=== PATIENT | female | born 1955 | race African-American/Black ===

== ENCOUNTER → 2017-09-13 | Outpatient (CLI) | payer MEDICAID | END | disposition home or self-care (01) | LOC: Rad HDHVI 14:04 | PROVIDERS: ATTEND Internal Medicine | DX: I10 Essential (primary) hypertension (principal); R06.02 Shortness of breath; R07.89 Other chest pain; I34.0 Nonrheumatic mitral (valve) insufficiency | CPT/HCPCS: 93306 ==

== ENCOUNTER → 2017-09-28 | Outpatient (CLI) | payer MEDICAID ==
[~2017-09-28] VITALS: Ht 170.2 cm; Wt 63.0 kg
[~2017-09-28] MED LIST: ADENOSINE 53 MG in GIVE UN-DILUTED 0 ML IV ONE; ADENOSINE 6 MG/2 ML INJ IV ONE; ADENOSINE 90 MG/30 ML INJ IV ONE
== END | disposition home or self-care (01) ==
LOC: Rad HDHVI 08:32
PROVIDERS: ATTEND Internal Medicine
DX: I10 Essential (primary) hypertension (principal); R07.89 Other chest pain; R06.02 Shortness of breath; G62.9 Polyneuropathy, unspecified; R53.1 Weakness; Z86.79 Personal history of other diseases of the circulatory system
CPT/HCPCS: 78452; 93005; 96374; 96375; A9500; J0153

== ENCOUNTER 2025-03-26 07:42 | Emergency (ER) | payer OTHER, MEDICAID ==
[~2025-03-26] VITALS: Ht 167.6 cm; Wt 57.5 kg
[2025-03-26 08:05] VITALS: BP 195/109; PULSE 66; RESP 17; TEMP 97.9; O2SAT 99
--- NOTE | 2025-03-26 08:19 | ED.PDOC ---
History of Present Illness HPI Comments A 69 YEAR OLD FEMALE PRESENTS TO THE ED WITH COMPLAINT OF HIGH BLOOD PRESSURE. PATIENT STATES SHE HAS A HISTORY OF HYPERTENSION AND TAKES CLONIDINE 0.2 MG B.I.D., BUT RAN OUT OF THIS MEDICATION YESTERDAY. PATIENT IS REQUESTING CLONIDINE HERE IN THE ED AND A PRESCRIPTION FOR THIS MEDICATION. PATIENT DENIES VISION CHANGES, SLURRED SPEECH, ONE-SIDED WEAKNESS, FACIAL DROOP, FEVER, CHILLS, SHORTNESS OF BREATH, CHEST PAIN, ABDOMINAL PAIN, NAUSEA, VOMITING, HEADACHE, OR OTHER COMPLAINTS. NO OTHER SYMPTOMS OR MODIFYING FACTORS AT THIS TIME. PATIENT IS ALERT, ORIENTED X 4, AND HAS STEADY GAIT. Chief Complaint: High Blood Pressure Time Seen by MD: 07:59 Reviewed Notes: Nurses Notes, Medications, Allergies Allergies: Coded Allergies: No Known Drug Allergy (Verified Allergy, Unknown, 09/28/17) Home Meds Active Scripts Clonidine Hydrochloride (Clonidine Hcl) 0.2 Mg Tab, 1 TAB PO BID, #60 TAB Prov:CAMILO ACNALES 03/26/25 Information Source: Patient Mode of Arrival: Ambulatory Severity: Moderate Timing: Days Duration: Since onset, Days Prehospital treatment: None Medication Refill: Ran out of Medication, For: Hypertension, For: Other (HYPERTENSION) Past Medical History PAST MEDICAL HISTORY: HTN Surgical History: Denies all surgeries 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: 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 Family History Family History: Reviewed,noncontributory to illness Social History Smoker: Non-Smoker Alcohol: Denies ETOH Use Drugs: Denies Drug Use Lives In: Home Constitutional: denies: chills, diaphoresis, fatigue, fever, malaise, sweats, weakness, others EENTM: denies: blurred vision, double vision, ear bleeding, ear discharge, ear drainage, ear pain, ear ringing, eye pain, eye redness, hearing loss, mouth pain, mouth swelling, nasal discharge, nose bleeding, nose congestion, nose pain, photophobia, tearing, throat pain, throat swelling, voice changes, others Respiratory: denies: cough, hemoptysis, orthopnea, SOB at rest, shortness of breath, SOB with excertion, stridor, wheezing, others Cardiovascular: reports: others (HYPERTENSION); denies: chest pain, dizzy spells, diaphoresis, Dyspnea on exertion, edema, irregular heart beat, left arm pain, lightheadedness, palpitations, PND, syncope Gastrointestinal: denies: abdomen distended, abdominal pain, blood streaked bowels, constipated, diarrhea, dysphagia, difficulty swallowing, hematemesis, melena, nausea, poor appetite, poor fluid intake, rectal bleeding, rectal pain, vomiting, others Genitourinary: denies: abnormal vagina bleeding, burning, dyspareunia, dysuria, flank pain, frequency, hematuria, incontinence, pain, , vagina discharge, urgency, others Neurological: denies: dizziness, fainting, headache, left sided numbness, left sided weakness, numbness, paresthesia, pre-existing deficit, right sided numbness, right sided weakness, seizure, speech problems, tingling, tremors, weakness, others Musculoskeletal: denies: back pain, gout, joint pain, joint swelling, muscle pain, muscle stiffness, neck pain, others Integumetry: denies: bruises, change in color, change in hair/nails, dryness, laceration, lesions, lumps, rash, wounds, others Allergic/Immunocompromised: denies: Difficulty Healing, Frequent Infections, Hives, Itching, others Hematologic/Lymphatic: denies: anemia, blood clots, easy bleeding, easy bru ising, swollen glands, others Endocrine: denies: excessive hunger, excessive sweating, excessive thirst, e xcessive urination, flushing, intolerance to cold, intolerance to heat, unexplained weight gain, unexplained weight loss, others Psychiatric: denies: anxiety, bipolar disorder, depression, hopeless, panic disorder, schizophrenia, sleepless, suicidal, others All Other Systems: Reviewed and Negative Physical Exam General Appearance: No Apparent Distress, Normal HEENT: Normal ENT Inspection, PERRL/EOMI, Pharynx Normal, TMs Normal Neck: Full Range of Motion, Non-Tender, Normal, Normal Inspection Respiratory: Chest Non-Tender, Lungs Clear, No Accessory Muscle Use, No Respiratory Distress, Normal Breath Sounds Cardiovascular: No Edema, No JVD, No Murmur, No Gallop, Normal Peripheral Pulses, Regular Rate/Rhythm Breast Exam: Deferred Gastrointestinal: No Organomegaly, Non Tender, No Pulsatile Mass, Normal Bowel Sounds, Soft Genitalia: Deferred Pelvic: Deferred Rectal: Deferred Extremities: No calf tenderness, Normal capillary refill, Normal inspection, Normal range of motion, Non-tender, No pedal edema Musculoskeletal : Apperance: Normal Neurologic: Alert, 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 Was a procedure done?: No Differential Dx Considerations may include: HYPERTENSION, HYPERTENSIVE URGENCY, UNCONTROLLED HYPERTENSION, MEDICATION REFILL, WELL CHECK X-Ray, Labs, Meds, VS Vital Signs Date Time Temp Pulse Resp B/P (MAP) Pulse Ox O2 Delivery O2 Flow Rate FiO2 03/26/25 09:28 173/95 03/26/25 08:21 195/109 03/26/25 08:05 97.9 66 17 195/109 (137) 99 97.9 03/26/25 07:50 60 03/26/25 07:43 97.9 64 18 212/108 100 97.9 Current Medications Medications (Trade) Dose Ordered Sig/Craig Route Start Time Stop Time Status Last Admin Clonidine HCl (Catapres Tablet) 0.2 mg ONCE ONCE PO 03/26/25 08:15 03/26/25 08:16 DC 03/26/25 08:21 X-Ray, Labs, Meds, VS Comment EXTERNAL MEDICAL RECORDS REVIEWED: [NONE] INDEPENDENT HISTORIANS: [NONE] SOCIAL DETERMINANTS OF HEALTH: [NONE] LABS ORDERED: NONE REVIEWED AND INTERPRETED RESULTS: NONE PATIENT DECLINED BLOOD TEST HERE IN ED SHE STATES SHE DOES NOT WANT TO WAIT F OR BLOOD TESTS AND WOULD RATHER JUST RECEIVE TREATMENT HERE IN THE ED. IMAGING ORDERED: NONE TREATMENTS ORDERED: CLONIDINE 0.2 MG PO PROCEDURES PERFORMED: NONE CRITICAL CARE TIME: NONE I HAVE DISCUSSED THE PATIENT WITH THE ATTENDING PHYSICIAN DR. FREEMAN AND HE AGREES WITH THE PATIENT'S PLAN OF CARE AND DISPOSITION. BASED ON HISTORY OF PRESENT ILLNESS, AND PHYSICAL EXAM, PATIENT WILL BE DISCHARGED HOME. DISCUSSED PLAN FOR DISCHARGE HOME WITH RX [CLONIDINE 0.2 MG]. MEDICATION WARNINGS GIVEN. SHARED DECISION MAKING: PATIENT INSTRUCTED TO FOLLOW UP WITH PRIMARY CARE PROVIDER IN 1-2 DAYS FOR RE-EVALUATION OF SYMPTOMS. PATIENT VERBALIZES UNDERSTANDING TO RETURN TO ED FOR NEW OR WORSENING SYMPTOMS OR IF FOLLOW UP WITH PCP CANNOT BE OBTAINED. PATIENT FEELS COMFORTABLE GOING HOME AT THIS TIME. ALL QUESTIONS ADDRESSED AT TIME OF DISCHARGE. Time of 1ST Reevaluation: 09:36 Reevaluation 1ST: Improved Patient Education/Counseling: Diagnosis, Treatment, Need For Follow Up Family Education/Counseling: Diagnosis, Treatment, Need For Follow Up Medical Screening: No EMC Exist At This Time SEPSIS Sepsis Screen Date sepsis recognized/suspect: Mar 26, 2025 Time Sepsis recognized/suspect: 0743 Recent Procedure: No On Antibiotic Therapy: No Respiratory Rate >20: No Heart Rate >90: No Temp<36 C (96.8 F) or >38.3 C: No SBP <90 or MAP <65 mmHG: No New Acute Mental Status Change: No Is the patient on CPAP, BIPAP,: No Physician Orders Electrocardigram (03/26/25 07:49) Vital Signs Date Time Temp Pulse Resp B/P (MAP) Pulse Ox O2 Delivery O2 Flow Rate FiO2 03/26/25 09:28 173/95 03/26/25 08:21 195/109 03/26/25 08:05 97.9 66 17 195/109 (137) 99 97.9 03/26/25 07:50 60 03/26/25 07:43 97.9 64 18 212/108 100 97.9 Medications Medications Dose Ordered Sig/Craig Route Start Time Stop Time Status Last Admin Dose Admin Clonidine HCl 0.2 mg ONCE ONCE PO 03/26/25 08:15 03/26/25 08:16 DC 03/26/25 08:21 Departure 1 Departure Time of Disposition: 09:36 Impression: Primary Impression: Hypertension Qualified Codes: I10 - Essential (primary) hypertension Additional Impression: Encounter for medication refill Disposition: HOME / SELF CARE / HOMELESS Condition: Stable Additional Instructions: FOLLOW-UP WITH PCP IN 1 TO 2 DAYS. TAKE MEDICATIONS PRESCRIBED. RETURN TO ED FOR ANY NEW OR WORSENING SYMPTOMS. e-Prescriptions Clonidine Hydrochloride (Clonidine Hcl) 0.2 Mg Tab 1 TAB PO BID, #60 TAB Prov: CAMILO CANALES 03/26/25 Discharged With: Self, Relative Critical Care Note Critical Care Time?: No Stability Stability form required: No I personally scribed for CAMILO CANALES ([email or web address]) on 03/26/25 at 08:19. Electronically submitted by Geremias Vernon ([email or web address]). I personally scribed for CAMILO CANALES ([email or web address]) on 03/26/25 at 08:30. Electronically submitted by Geremias Vernon ([email or web address]). CAMILO CANALES Mar 26, 2025 08:19
[2025-03-26] MEDS ORDERED: CLON0.2T PO (08:31)
--- NOTE | 2025-03-26 11:22 | ECG ---
[facility] Test Date: 2025-03-26 Test Time: 07:50:57 Pat Name: KARIME ELMORE Department: ED Room: Gender: F Ed Educational Aide: CARLY : 1955 Requested By: EMERGENCY EMERGENCY Order Number: [id number] Reading MD: Collin Ramon Measurements Intervals [place] Rate: 60 P: 33 [place]: 168 QRS: -66 QRSD: 83 T: 70 QT: 493 QTc: 493 Interpretive Statements Sinus rhythm Probable left atrial enlargement Left anterior fascicular block Anterior infarct, old Electronically Signed On 03-26-2025 20:12:29 PST by Collin Ramon Please click the below link to view image of tracing.
== END 2025-03-26 09:36 | disposition home or self-care (01) ==
LOC: ER 07:42
DX: I10 Essential (primary) hypertension (principal); Z76.0 Encounter for issue of repeat prescription
CPT/HCPCS: 93005